=== PATIENT | female | born 1985 | race African-American/Black ===

== ENCOUNTER 2017-08-30 17:35 | Emergency (ER) | payer SELFPAY ==
[2017-08-30 17:50] VITALS: BP 132/78; PULSE 111; RESP 20; TEMP 100; O2SAT 98
[2017-08-30 18:29] LABS: BILIRUBIN, URINE NEG (NEG); BLOOD, URINE LARGE (NEG); GLUCOSE,URINE NEG (NEG); KETONE, URINE NEG (NEG); MUCUS URINE MOD /lpf (OCC); NITRITE,URINE NEG (NEG); SQUAMOUS EPITHELIAL CELL URINE 29 /hpf (0-5); URINE COLOR YELLOW (YELLW/STRAW); URINE LEUKOCYTE ESTERASE SMALL (NEG)
[2017-08-30] MEDS ORDERED: PHEN0.4T PO (21:23)
--- NOTE | 2017-08-30 21:23 | PD ---
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 She notes an unusual bump in the region of the vulva on the left side. She reports last menstruation now. She has had no abnormal discharge. Menstrual bleeding is normal. No fever. No similar prior episode. Patient is concerned she might have a herpes simplex lesion. No similar prior episodes. PFSH Past Medical History Medical History: Denies Significant Hx Immunizations Current: No Tetanus Vaccination: Unknown Influenza Vaccination: No ?: Not LMP: 08-29-17 Past Surgical History Abdominal Surgery: Yes Section: Yes Social History Alcohol Use: Yes (occasionally) Tobacco Use: No Substance Use: No Allergies-Medications (Allergen,Severity, Reaction): Coded Allergies: No Known Allergies (Unverified , 08/30/17) Reported Meds & Prescriptions Reported Meds & Active Scripts Active Pyridium (Phenazopyridine HCl) 100 Mg Tab 100 Mg PO Q8H PRN Review of Systems Except as stated in HPI: all other systems reviewed are Neg General / Constitutional: No: Fever Physical Exam Narrative GENERAL: 32-year-old female pleasant well-nourished well-developed GENITOURINARY: There is no vulvar lesion. Vaginal mucosa normal. No discharge. No adnexal mass or tenderness. Vital Signs Date Time Temp Pulse Resp B/P (MAP) Pulse Ox O2 Delivery O2 Flow Rate FiO2 08/30/17 17:50 100.0 111 20 132/78 (96) 98 SKIN: Warm and dry. HEAD: Atraumatic. Normocephalic. EYES: Pupils equal and round. No scleral icterus. No injection or drainage. ENT: No nasal bleeding or discharge. Mucous membranes pink and moist. NECK: Trachea midline. No JVD. CARDIOVASCULAR: Regular rate and rhythm. RESPIRATORY: No accessory muscle use. Clear to auscultation. Breath sounds equal bilaterally. GASTROINTESTINAL: Abdomen soft, non-tender, nondistended. Hepatic and splenic margins not palpable. MUSCULOSKELETAL: Extremities without clubbing, cyanosis, or edema. No obvious deformities. NEUROLOGICAL: Awake and alert. No obvious cranial nerve deficits. Motor grossly within normal limits. Five out of 5 muscle strength in the arms and legs. Normal speech. PSYCHIATRIC: Appropriate mood and affect; insight and judgment normal. Data Data Last Documented VS Vital Signs Date Time Temp Pulse Resp B/P (MAP) Pulse Ox O2 Delivery O2 Flow Rate FiO2 08/30/17 17:50 100.0 111 20 132/78 (96) 98 Orders Orders Urinalysis - C+S If Indicated (08/30/17 17:51) Ed Urine Pregnancytest Poc (08/30/17 17:51) Gc And Chlamydia Pcr (08/30/17 21:10) Wet Prep Profile (08/30/17 21:10) Phenazopyridine (Pyridium) (08/30/17 21:30) Labs Laboratory Tests Test 08/30/17 18:00 08/30/17 21:20 Urine Color YELLOW Urine Turbidity HAZY Urine pH 7.0 Urine Specific [place] 1.027 Urine Protein 30 mg/dL Urine Glucose (UA) NEG mg/dL Urine Ketones NEG mg/dL Urine Occult Blood LARGE Urine Nitrite NEG Urine Bilirubin NEG Urine Urobilinogen 2.0 MG/DL Urine Leukocyte Esterase SMALL Urine RBC 87 /hpf Urine WBC 3 /hpf Urine Squamous Epithelial Cells 29 /hpf Urine Mucus MOD /lpf Microscopic Urinalysis Comment CULT NOT INDICATED Clue Cells (Wet Prep) NONE SEEN Vaginal Trichomonas (Wet Prep) PRESENT Vaginal Yeast (Wet Prep) NONE SEEN MDM Medical Decision Making Medical Screen Exam Complete: Yes Emergency Medical Condition: Yes Medical Record Reviewed: Yes Differential Diagnosis IUP, UTI, ectopic , ov torsion, appendicitis, TOA, cervicitis, BV, Trichomoniasis, ov cyst, hernia, mittelschmerz, pain from menstruation Narrative Course Urinalysis shows hematuria with no UTI Wet prep shows trichomoniasis U is negative Flagyl given here. Empiric coverage for GC chlamydia given here. Patient educated regarding treatment for her partner. Diagnosis Primary Impression: Dysuria Additional Impression: Trichomoniasis Referrals: [facility] Dept. Additional Instructions: TRICHOMONIASIS IS AN STD. YOU HAVE BEEN TREATED FOR IT HERE. YOUR PARTNER WILL NEED TO BE TREATED. IF YOUR PARTNER IS NOT TREATED YOU WILL GET TRICHOMONIASIS AGAIN AND AGAIN. PLEASE COMMUNICATE THIS TO YOUR PARTNER. Med/Other Pt SpecificInfo: Prescription(s) given Scripts Phenazopyridine (Pyridium) 100 Mg Tab 100 MG PO Q8H Y for DYSURIA, #20 TAB 0 Refills Prov: Elvis Daniels MD 08/30/17 Disposition: 01 DISCHARGE HOME Condition: Stable Elvis Daniels MD Aug 30, 2017 21:23
[2017-08-30] MEDS ORDERED: PHENAZOPYRIDINE HCL 100 MG TAB PO ONE (21:30)
[2017-08-30] MEDS ORDERED: metroNIDAZOLE 500 MG TAB PO ONE (21:45)
[2017-08-30] MEDS ORDERED: cefTRIAXone 250 MG VIAL IM ONE (21:45)
[2017-08-30] MEDS ORDERED: AZITHROMYCIN PWD FOR SUSP 1 GM PACKET PO ONE (21:45)
[2017-08-30] MEDS ORDERED: LIDOCAINE HCL 1% 50 ML VIAL IM ONE (21:45)
== END 2017-08-30 23:09 | disposition home or self-care (01) ==
LOC: NEPD 17:35
DX: R30.0 Dysuria (principal); A59.9 Trichomoniasis, unspecified
CPT/HCPCS: 81001; 84703; 87210; 87491; 87591; 96372; 99283; J0696